=== PATIENT | male | born 1955 | race Caucasian/White ===

== ENCOUNTER 2016-11-12 10:16 | Observation (INO) | payer OTHER ==
[2016-11-12] MEDS ORDERED: Ondansetron INJ* 2 MG/ML VIAL IV ONE ×3 (11:34→16:18)
[2016-11-12] MEDS ORDERED: NS 0.9% 1000 ML* 2,000 ML IV ONE (11:34)
[2016-11-12 11:44] LABS: Hematocrit 45 % (42-52); Hemoglobin 15.1 g/dl (14.0-18.0); Mean Corpuscular HGB Conc 34 g/dl (31-36); Mean Corpuscular Hemoglobin 29 pg (27-31); Mean Corpuscular Volume 86 fL (80-94); Mean Platelet Volume 9 um3 (7.4-10.4); Red Blood Count 5.25 10^6/ul (4.0-5.4); Red Cell Distribution Width 14 % (10.5-15); White Blood Count 16.1 10^3/ul (3.5-10.8)
[2016-11-12 11:58] LABS: Albumin 4.2 g/dL (3.2-5.2); BUN/Creatinine Ratio 24.4 (8-20); C Reactive Protein 1.57 mg/L (< 5.00); Calcium 9.3 mg/dL (8.6-10.3); EGFR African American 122.4 (>60); EGFR Non-African American 95.2 (>60); Globulin 2.5 g/dL (2-4); Magnesium 1.9 mg/dL (1.9-2.7); Potassium 3.9 mmol/L (3.5-5.0); Total Bilirubin 0.5 mg/dL (0.2-1.0); Total Protein 6.7 g/dL (6.4-8.9)
[2016-11-12 12:11] LABS: TSH (Thyroid Stimulating Horm) 1.65 mcIU/mL (0.34-5.60)
[2016-11-12] MEDS ORDERED: Iohexol 300* (CONTRAST) 10 ML SDV IV ONE (12:33)
[2016-11-12] MEDS ORDERED: Morphine INJ* 4 MG/ML 1 ML SYRINGE IV ONE (13:15)
--- NOTE | 2016-11-12 14:20 | RAD ---
INDICATION: Abdominal pain, vomiting. Chills. COMPARISON: January 24, 2005 CT. TECHNIQUE: Multidetector CT images were obtained from the lung bases to the ischial tuberosities with 100 mL Omnipaque 300 IV and oral contrast. Multiplanar reformation. REPORT: Unremarkable visualized inferior thorax. Unremarkable liver. Partially decompressed gallbladder without gross CT abnormality. Unremarkable pancreas and spleen. Negative for CT abdomen malleolus the upper GI. Upper normal size ileal bowel loops. Enteric contrast extends to the ileum without evidence for small bowel obstruction. Retrocecal appendix is mildly prominent measuring 8 mm in diameter. Mild periappendiceal edema. No appendicolith visualized. Negative for periappendiceal abscess. Unremarkable largely decompressed colon. Negative for ascites, free air, hernias. Normal adrenal glands. Unremarkable kidneys with symmetric nephrograms and pyelograms. Unremarkable ureters and urinary bladder. Symmetric seminal vesicles. Negative for thoracic lymphadenopathy. Atherosclerotic plaque of normal diameter abdominal aorta and iliac arteries. Physiologic distention of the IVC. Lumbar sacral spine degenerative spondylosis and facet joint osteoarthritis. Mild bilateral hip joint osteoarthritis. Negative for suspicious focal osseous lesions. IMPRESSION: Mildly prominent retrocecal appendix with mild periappendiceal edema. While grossly unchanged in diameter the appendix appears elongated compared with the prior exam and the periappendiceal edema appears new. Correlate with clinical data for potential early acute appendicitis. No visualized appendicolith. Negative for perienteric abscess.
[2016-11-12] MEDS ORDERED: Ondansetron INJ* 2 MG/ML VIAL IV PRN ×2 (15:11→19:11)
[2016-11-12] MEDS ORDERED: HYDROmorphone* 1 MG/ML 1 ML SYR IV PRN ×2 (15:11→19:11)
[2016-11-12] MEDS ORDERED: Piperac/Tazob 3.375 gm in NS* 3.375 GM/100 ML BAG IVPB ONE (15:15)
--- NOTE | 2016-11-12 15:56 | HP ---
DATE OF ADMISSION: 11/12/2016. REASON FOR ADMISSION: Lower abdominal pain and appendicitis. HISTORY OF PRESENT ILLNESS: Mr. Ralph is a 61-year-old gentleman who presented to the emergency room earlier today with complaints of a one day history of worsening lower abdominal pain. The pat francesnt notes that he had dinner at [employer] last night after which he experienced some intense lower abd ominal pain with associated nausea and vomiting. He had multiple episodes of vomiting and the patie nt eventually subsided last night. Earlier this morning, he woke up again with similar pain localiz ed across his lower abdomen. He reports associated nausea this morning, but he lost his appetite an d was not able to eat anything since 7 o'clock. He reports also associated soft stools, but denied blood in the rectum. He has never experienced any similar complaints in the past and for this reason he presented to the emergency room for further evaluation. He had laboratory work-up that revealed leukocytosis with a white count of 16,000. He also had a CT scan of the abdomen and pelvis that re vealed findings consistent with possible appendicitis. Given his ongoing symptoms and the findings of the CT scan, we were asked to see the patient for further evaluation and to discuss possible appe ndectomy. PAST MEDICAL HISTORY: Essentially unremarkable. He denies any history of heart, liver, lung or kid janie disease. PAST SURGICAL HISTORY: Significant for right inguinal hernia repair, as well as right triceps muscl e repair back approximately 40 years ago. CURRENT MEDICATIONS: He takes Tylenol or Aleve as needed for arthritis aches and pains at home. ALLERGIES: He has no known drug allergies. FAMILY HISTORY: Noncontributory. SOCIAL HISTORY: The patient smokes about a quarter to half-a-pack per day for the past 40+ years. He drinks alcohol occasionally and caffeine intake is minimal. REVIEW OF SYSTEMS: She HPI, otherwise negative. He reports some fever and chills last night, but d enies actually taking a temperature at home. No headache, dizziness, shortness of breath or chest p ain. No dysuria, hematuria, or urinary frequency. He admits to lower abdominal pain with associate d nausea and vomiting, as well as soft stools, but denies any constipation or bleeding per rectum. PHYSICAL EXAMINATION GENERAL: He is a pleasant, healthy-appearing, upper middle-aged gentleman in no acute distress or d iscomfort at the time of admission. VITAL SIGNS: Revealed temperature of 97.8, pulse of 56, respiration of 16, O2 sat of 97 percent on room air, and blood pressure of 142/91. HEENT: Sclerae anicteric. PERRL. EOM's intact. Oropharynx is pink and moist with no exudate. NECK: Supple. Trachea is midline. No cervical adenopathy, thyromegaly or JVD. LUNGS: Clear to auscultation bilaterally. HEART: Regular rate and rhythm. Normal S1 and S2 without rubs, murmurs, or gallops. BACK: Normal curvature. No CVA tenderness. ABDOMEN: Soft and nondistended. Moderate suprapubic and right lower quadrant tenderness noted on p alpation. There is mild guarding and a little bit of rebound; however, there is no hernias or judy s noted. There is a focal tenderness noted at McBurney's point. Agarwal sign was negative. EXTREMITIES: Without cyanosis, clubbing, or edema. RECTAL: Deferred at this time. NEUROLOGIC: Grossly intact. LABORATORY WORK-UP: CBC done with white count of 16,100, hemoglobin of 15, hematocrit of 45, and p latelets of 286. Chemistry with sodium of 133, potassium of 3.9, chloride 104, CO2 21, BUN 20, crea tinine 0.8. His LFT's, lactic acid, amylase and lipase were essentially within normal limits. IMPRESSION: Gsfts-lxz-lliw-old gentleman with worsening lower abdominal pain for the last [address] scan finding consistent with early appendicitis. PLAN: I went on and discussed with the patient proceeding with a laparoscopic appendectomy given hi s ongoing symptoms. The rationale, indications, risks and benefits of surgery were discussed with h im today. Risks include but not limited to infection, bleeding, or injury to adjacent structures. He appears to understand and wishes to proceed with surgery. I also discussed with him antibiotic m anagement and observation for over night hoping his symptoms will improve; however, there is no guar antee it might not get worse. He understood the risks involved and wishes to proceed with surgery t onight. He has been NPO since 7 o'clock this morning. I will discuss the case with Dr. Arroyo and will likely take him to the operating room later this evening in anticipation for a laparoscopic ap pendectomy. GEORGE SALCEDO [id number]/[facility] #: [id number]
[2016-11-12] MEDS ORDERED: Ondansetron INJ* 2 MG/ML VIAL ONE ×2 (16:19→19:39)
[2016-11-12] MEDS ORDERED: Bupivacaine 0.5% W/EPI SDV* 30 ML VIAL ONE (18:00)
--- NOTE | 2016-11-12 18:14 | ED ---
Blaine Gross Billy, scribed for Brett Walter MD on 11/12/16 at 1152 . Abdominal Pain/Male - HPI Summary HPI Summary: Patient is a 61 year-old male coming to [facility] for evaluation of diffuse abdominal pain and concerns for food poisoning. Pain severity 5/10. His abdominal pain improves with emesis. He also reports N/V/D. Denies blood in the stool. Patient states that his symptoms began 2200 yesterday shortly after he ate fast food. He had 2x BM this morning, soft and loose. - History of Current Complaint Chief Complaint: EDAbdPain Stated Complaint: VOMITING Time Seen by Provider: 11/12/16 11:29 Hx Obtained From: Patient Onset/Duration: Gradual Onset, Lasting Hours, Still Present Timing: Constant Severity Initially: Moderate Severity Currently: Moderate Pain Intensity: 5 Pain Scale Used: 0-10 Numeric Location: Diffuse Radiates: No Aggravating Factor(s): Nothing Alleviating Factor(s): Vomiting Associated Signs And Symptoms: Positive: Nausea, Vomiting, Diarrhea. Negative: Blood in Stool - Allergies/Home Medications Allergies/Adverse Reactions: Allergies Allergy/AdvReac Type Severity Reaction Status Date / Time No Known Allergies Allergy Verified 09/01/15 14:35 Home Medications: Home Medications NK [No Home Medications Reported] 11/12/16 [History Confirmed 11/12/16] PMH/Surg Hx/FS Hx/Imm Hx Endocrine/Hematology History: Denies: Hx Diabetes, Hx Thyroid Disease Cardiovascular History: Reports: Other Cardiovascular Problems/Disorders Denies: Hx Hypertension Respiratory History: Denies: Hx Asthma, Hx Chronic Obstructive Pulmonary Disease (COPD) GI History: Denies: Hx Ulcer - Surgical History Surgery Procedure, Year, and Place: RIGHT 5TH FINGER, [facility] Infectious Disease History: No Infectious Disease History: Denies: Hx Hepatitis, Hx Human Immunodeficiency Virus (HIV), Traveled Outside the [place] in Last 30 Days - Family History Known Family History: Positive: Cardiac Disease Family History: No family members with colon disease. - Social History Alcohol Use: Rare Substance Use Type: Reports: None Smoking Status (MU): Heavy Every Day Tobacco Smoker Amount Used/How Often: 3/4-1 PPD Review of Systems Negative: Fever, Chills Positive: Abdominal Pain, Vomiting, Diarrhea, Nausea All Other Systems Reviewed And Are Negative: Yes Physical Exam Triage Information Reviewed: Yes Vital Signs On Initial Exam: Initial Vitals Temp Pulse Resp BP Pulse Ox 97.8 F 75 20 142/94 100 11/12/16 10:18 11/12/16 10:18 11/12/16 10:18 11/12/16 10:18 11/12/16 10:18 Vital Signs Reviewed: Yes Appearance: Positive: Well-Appearing, No Pain Distress Skin: Positive: Warm, Skin Color Reflects Adequate Perfusion, Dry Head/Face: Positive: Normal Head/Face Inspection Eyes: Positive: EOMI, CHRIS ENT: Positive: Normal ENT inspection Neck: Positive: Supple, Nontender Respiratory/Lung Sounds: Positive: Clear to Auscultation, Breath Sounds Present Cardiovascular: Positive: RRR Abdomen Description: Positive: Soft, Other: - Diffusely tender. Bowel Sounds: Positive: Other - High-pitched bowel sounds. Musculoskeletal: Positive: Normal, Strength/ROM Intact Neurological: Positive: Normal, Sensory/Motor Intact, Alert, Oriented to Person Place, Time Psychiatric: Positive: Affect/Mood Appropriate - Marquis Coma Scale Coma Scale Total: 15 Diagnostics - Vital Signs Vital Signs Temp Pulse Resp BP Pulse Ox 11/12/16 10:18 97.8 F 75 20 142/94 100 - Laboratory Lab Results: Lab Results 11/12/16 11/12/16 11/12/16 Range/Units 10:00 10:00 10:00 WBC 16.1 H (3.5-10.8) 10^3/ul RBC 5.25 (4.0-5.4) 10^6/ul Hgb 15.1 (14.0-18.0) g/dl Hct 45 (42-52) % MCV 86 (80-94) fL MCH 29 (27-31) pg MCHC 34 (31-36) g/dl RDW 14 (10.5-15) % Plt Count 286 (150-450) 10^3/ul MPV 9 (7.4-10.4) um3 Neut % (Auto) 78.6 (38-83) % Lymph % (Auto) 14.5 L (25-47) % Summers % (Auto) 5.7 (1-9) % Eos % (Auto) 0.8 (0-6) % Baso % (Auto) 0.4 (0-2) % Absolute Neuts (auto) 12.7 H (1.5-7.7) 10^3/ul Absolute Lymphs (auto) 2.3 (1.0-4.8) 10^3/ul Absolute Monos (auto) 0.9 H (0-0.8) 10^3/ul Absolute Eos (auto) 0.1 (0-0.6) 10^3/ul Absolute Basos (auto) 0.1 (0-0.2) 10^3/ul Absolute Nucleated RBC 0 10^3/ul Nucleated RBC % 0 INR (Anticoag Therapy) 0.96 (0.89-1.11) APTT 29.1 (26.0-36.3) seconds Sodium 133 (133-145) mmol/L Potassium 3.9 (3.5-5.0) mmol/L Chloride 104 (101-111) mmol/L Carbon Dioxide 21 L (22-32) mmol/L Anion Gap 8 (2-11) mmol/L BUN 20 (6-24) mg/dL Creatinine 0.82 (0.67-1.17) mg/dL Est GFR ( Amer) 122.4 (>60) Est GFR (Non-Af Amer) 95.2 (>60) BUN/Creatinine Ratio 24.4 H (8-20) Glucose 122 H (70-100) mg/dL Lactic Acid (0.5-2.0) mmol/L Calcium 9.3 (8.6-10.3) mg/dL Magnesium 1.9 (1.9-2.7) mg/dL Total Bilirubin 0.50 (0.2-1.0) mg/dL AST 20 (13-39) U/L ALT 23 (7-52) U/L Alkaline Phosphatase 79 (34-104) U/L Total Creatine Kinase 133 (10-223) U/L CK-MB (CK-2) 5.4 (0.6-6.3) ng/mL Troponin I 0.00 (<0.04) ng/mL C-Reactive Protein 1.57 (< 5.00) mg/L B-Natriuretic Peptide ( - 100) pg/mL Total Protein 6.7 (6.4-8.9) g/dL Albumin 4.2 (3.2-5.2) g/dL Globulin 2.5 (2-4) g/dL Albumin/Globulin Ratio 1.7 (1-3) Lipase 18 (11.0-82.0) U/L TSH 1.65 (0.34-5.60) mcIU/mL 11/12/16 11/12/16 Range/Units 10:00 10:00 WBC (3.5-10.8) 10^3/ul RBC (4.0-5.4) 10^6/ul Hgb (14.0-18.0) g/dl Hct (42-52) % MCV (80-94) fL MCH (27-31) pg MCHC (31-36) g/dl RDW (10.5-15) % Plt Count (150-450) 10^3/ul MPV (7.4-10.4) um3 Neut % (Auto) (38-83) % Lymph % (Auto) (25-47) % Summers % (Auto) (1-9) % Eos % (Auto) (0-6) % Baso % (Auto) (0-2) % Absolute Neuts (auto) (1.5-7.7) 10^3/ul Absolute Lymphs (auto) (1.0-4.8) 10^3/ul Absolute Monos (auto) (0-0.8) 10^3/ul Absolute Eos (auto) (0-0.6) 10^3/ul Absolute Basos (auto) (0-0.2) 10^3/ul Absolute Nucleated RBC 10^3/ul Nucleated RBC % INR (Anticoag Therapy) (0.89-1.11) APTT (26.0-36.3) seconds Sodium (133-145) mmol/L Potassium (3.5-5.0) mmol/L Chloride (101-111) mmol/L Carbon Dioxide (22-32) mmol/L Anion Gap (2-11) mmol/L BUN (6-24) mg/dL Creatinine (0.67-1.17) mg/dL Est GFR ( Amer) (>60) Est GFR (Non-Af Amer) (>60) BUN/Creatinine Ratio (8-20) Glucose (70-100) mg/dL Lactic Acid 0.7 (0.5-2.0) mmol/L Calcium (8.6-10.3) mg/dL Magnesium (1.9-2.7) mg/dL Total Bilirubin (0.2-1.0) mg/dL AST (13-39) U/L ALT (7-52) U/L Alkaline Phosphatase (34-104) U/L Total Creatine Kinase (10-223) U/L CK-MB (CK-2) (0.6-6.3) ng/mL Troponin I (<0.04) ng/mL C-Reactive Protein (< 5.00) mg/L B-Natriuretic Peptide 49 ( - 100) pg/mL Total Protein (6.4-8.9) g/dL Albumin (3.2-5.2) g/dL Globulin (2-4) g/dL Albumin/Globulin Ratio (1-3) Lipase (11.0-82.0) U/L TSH (0.34-5.60) mcIU/mL Result Diagrams: 11/12/16 10:00 11/12/16 10:00 Lab Statement: Any lab studies that have been ordered have been reviewed, and results considered in the medical decision making process. - CT abd/pel w CT Interpretation Completed By: Radiologist - Mildly prominent retrocecal appendix with mild periappendiceal edema. While grossly unchanged in diameter the appendix appears elongated compared with the prior exam and the periappendiceal edema appears new. Correlate with clinical data for potential early acute appendicitis. No visualized appendicolith. Negative for perienteric abscess. Abdominal Pain Fem Course/Dx - Course Course Of Treatment: NO CRITICAL CARE TIME. Assessment/Plan: DISCUSSED WITH SURGERY WHO SAW PATIENT IN THE ED. ADMIT SURGERY STABLE. - Diagnoses Provider Diagnoses: Abdominal pain - Provider Notifications Discussed Care Of Patient With: Dr. Arroyo (surgery) @ 1440: will have PA see patient in the ED. GEORGE Florian (surgery) @ 1509: admit to surgery. Discharge - Discharge Plan Condition: Stable Disposition: ADMITTED TO [facility] documentation as recorded by the Blaine garcia Billy accurately reflects the service I personally performed and the decisions made by me, Brett Walter MD.
[2016-11-12] MEDS ORDERED: fentaNYL* 50 MCG/ML 2 ML VIAL (100 MCG VIAL) ONE (18:55)
[2016-11-12] MEDS ORDERED: HYDROmorphone* 1 MG/ML 1 ML SYR ONE (18:55)
[2016-11-12] MEDS ORDERED: Midazolam* 1 MG/ML 2 ML VIAL (2 MG) ONE (18:55)
[2016-11-12] MEDS ORDERED: PROCHLORPERAZINE INJ 5 MG/ML 2 ML VIAL IV PRN (19:11)
[2016-11-12] MEDS ORDERED: DiMENhydriNATE IV* 50 MG/ML VIAL IV PUSH PRN (19:11)
[2016-11-12] MEDS ORDERED: fentaNYL* 50 MCG/ML 2 ML VIAL (100 MCG VIAL) IV PRN (19:11)
[2016-11-12] MEDS ORDERED: Buffered Lidocaine 1% SYRIN* 3 ML/SYR SYRINGE INTRADERM ONE (19:13)
[2016-11-12] MEDS ORDERED: Dexamethasone IV* 4 MG/ML 1 ML (4 MG) IV SLOW PU ONE (19:13)
[2016-11-12] MEDS ORDERED: Famotidine IV* 10 MG/ML 2 ML (20 mg) IV ONE (19:13)
[2016-11-12] MEDS ORDERED: PROCHLORPERAZINE INJ 5 MG/ML 2 ML VIAL ONE (19:19)
[2016-11-12] MEDS ORDERED: Scopolamine 1.5 mg* PATCH ONE (19:19)
[2016-11-12] MEDS ORDERED: Ketorolac INJ* 30 MG/ML 1 ML VIAL ONE (19:39)
[2016-11-12] MEDS ORDERED: Propofol* 10 MG/ML 20 ML BTL IV PUSH ONE (19:39)
[2016-11-12] MEDS ORDERED: Lidocaine 2% PF* 5 ML VIAL ONE (19:39)
[2016-11-12] MEDS ORDERED: Rocuronium* 10 MG/ML VIAL ONE (20:15)
[2016-11-12] MEDS ORDERED: Ketorolac INJ* 30 MG/ML 1 ML VIAL IV PUSH PRN (20:45)
[2016-11-12] MEDS ORDERED: oxyCODONE/Acetamin 5/325 MG* TAB PO PRN ×2 (20:45)
[2016-11-12] MEDS ORDERED: diPHENhydraMINE PO* 25 MG PO PRN (20:47)
--- NOTE | 2016-11-12 20:52 | SURGPN ---
Brief Operative Note - Surgery Procedures: PREOP/POSTOP DX: ACUTE APPENDICITIS PROC: LAP APPENDECTOMY SURG: MECENAS ASSIST: NONE ANES: RADHA IVF: 1.1 L LR SPEC: APPENDIX DRAIN/COMPL: NONE COND: STABLE TO RR
[2016-11-13 04:05] VITALS: BP 94/49
--- NOTE | 2016-11-13 09:44 | PN ---
Progress Note - Progress Note SOAP: DISCHARGE NOTE Subjective:feels well,ate solids,no nausea,minimal pain,wants to go home [] Objective:alert,lungs:clear bilat;heart:RRR;abd:+bs, soft,incisions C/D/I;ext: nontender [] Assessment:POD#1 s/p Lap Appy,stable [] Plan:discharge home,instructions reviewed,RX sent,office postop visit scheduled []
--- NOTE | 2016-11-13 18:18 | OP ---
DATE OF OPERATION: 11/12/16 - ROOM #339 DATE OF : 53 SURGEON: Beny Arroyo MD APPLIQUER: None. ANESTHESIOLOGIST: Dakotah Morrison MD ANESTHESIA: General endotracheal. PRE-OP DIAGNOSIS: Acute appendicitis. POST-OP DIAGNOSIS: Acute appendicitis. OPERATIVE PROCEDURE: Laparoscopic appendectomy. ESTIMATED BLOOD LOSS: Minimal. IV FLUIDS: 1100 mL crystalloid. SPECIMENS: Appendix. DRAINS: None. COMPLICATIONS: None. COUNTS: Instrument, needle, and sponge counts were correct. DESCRIPTION OF PROCEDURE: The patient was brought to the operating room and placed on table supine. Sequential compression devices were placed on both lower extremities. General anesthesia was administered. He received appropriate antibiotics, and was prepped and draped in the usual sterile fashion and a time-out was performed. Local anesthetic was infiltrated into the skin and soft tissue prior to making each incision. Entry to the abdomen was through a transumbilical vertical incision using an open technique. After accessing the peritoneal cavity, a 12 mm trocar was placed. Carbon dioxide was insufflated to a pressure 15 mmHg. Under direct visualization, 5 mm trocars were placed in the suprapubic midline and the left lower quadrant. The appendix was in the retrocecal position. The adhesions of the appendix to the retroperitoneum were divided using combination of sharp dissection and cautery. Once the appendix were freed, it was able to be elevated. The appendix appeared to be acutely inflamed with early suppurative changes, no gangrene. The appendix was divided from the cecum at its base using the Endo ANAM stapler with a 45 mm ayala cartridge and this was used to divide both the appendix and the appendix mesentery. The appendix was then placed into an endoscopic retrieval bag and retrieved through the umbilical site. The site of dissection and staple lines were inspected, they were noted to be intact, hemostasis was excellent. Ports removed under direct visualization. Carbon dioxide was released. The umbilical incision was closed with 0 Polysorb in a figure-of- eight fashion to approximate the fascia. Skin incisions were closed with 4-0 Monocryl in a subcuticular fashion. DermaFlex was applied to the incisions. The patient tolerated the procedure well, he was extubated and transferred to the recovery room in stable condition. CC: Delvis Lal MD* [id number]/[facility] #: [id number] [facility] HOSPITALDave
--- NOTE | 2016-11-14 05:52 | DS ---
DISCHARGE SUMMARY: DATE OF ADMISSION: 11/12/16 DATE OF DISCHARGE: 11/13/16 ATTENDING SURGEON: Dr. Beny Arroyo (dictated by Analilia Smith NP). HOSPITAL COURSE: Please refer to admission history and physical for admission details. The patient was taken to the operating room on 11/12/16, and underwent laparoscopic appendectomy by Dr. Arroyo. He had an uneventful postoperative course, he required minimal pain medication and was able to meet the criteria for discharge by tolerating solid foods, voiding in large amounts and ambulating in the casiano. PHYSICAL EXAMINATION: General: Well-appearing, in no acute distress. Vital signs are stable. He is afebrile. His O2 saturation is 95% on room air. Lungs : Breath sounds bilaterally clear and equal. Heart: Regular rate and rhythm. No murmurs or rubs appreciated. Abdomen: Active bowel sounds, soft, laparoscopic incisions are intact, clean and dry. Bowel sounds are active. Extremities are warm and nontender. IMPRESSION: Postop day 1, status post laparoscopic appendectomy, doing well. PLAN: Discharge home today. Instructions were reviewed with the patient. Prescription for opioid was transmitted to his pharmacy; office visit for postoperative assessment was scheduled for 11/20/16. He is not on any current home medications. He knows that he may use [id number] Tylenol or Advil for milder pain. All of his questions were answered. LYNDSAY SMITH NP CC: Dr. Arroyo, [facility]; [facility]* [id number]/[facility] #: [id number] MTDD
== END 2016-11-13 10:45 | disposition home or self-care (01) ==
LOC: ED 10:16 → SSU 15:11
PROVIDERS: ADMIT Surgery; ATTEND Surgery
PROC: 0DTJ4ZZ Resection of Appendix, Percutaneous Endoscopic Approach (ICD-10-PCS; principal; 2016-11-12 16:30)
DX: K35.80 Unspecified acute appendicitis (principal); F17.210 Nicotine dependence, cigarettes, uncomplicated; R11.2 Nausea with vomiting, unspecified; R19.7 Diarrhea, unspecified
CPT/HCPCS: 36415; 74177; 80053; 82550; 82553; 83605; 83690; 83735; 83880; 84443; 84484; 85025; 85610; 85730; 86140; 88304; 96361; 96374; 96375; 99284; A9270-GY; C1776; G0378; J0780; J1170; J1885; J2250; J2270; J2405; J2543; J2704; J3010; Q9967

== ENCOUNTER 2022-09-21 02:08 | Inpatient (IN) ==
[2022-09-21 02:57] LABS: ABS Basophils 0.1 10^3/ul (0-0.2); ABS Eosinophils 0.3 10^3/ul (0-0.6); ABS Lymphocytes 2.7 10^3/ul (1.0-4.8); ABS Monocytes 0.9 10^3/ul (0-0.8); ABS Neutrophils 9.4 10^3/ul (1.5-7.7); Eosinophil % 2.4 %; Hematocrit 41 % (42-52); Hemoglobin 13.3 g/dL (14.0-18.0); Lymphocyte % 20.1 %; Mean Corpuscular HGB Conc 32 g/dL (31-36); Mean Corpuscular Hemoglobin 29 pg (27-31); Mean Corpuscular Volume 91 fL (80-94); Mean Platelet Volume 9.1 fL (7.4-10.4); Platelet Count 311 10^3/uL (150-450); Red Blood Count 4.53 10^6 /uL (4.18-5.48); Red Cell Distribution Width 14 % (10-15); White Blood Count 13.3 10^3/uL (3.5-10.8)
[2022-09-21] MEDS ORDERED: Heparin DRIP 25,000 UNITS BAG 25,000 UNITS/500 ML BAG IV SCH (03:00)
[2022-09-21 03:01] LABS: INR 1.04 (0.88-1.18)
[2022-09-21 03:18] LABS: Albumin 3.5 g/dL (3.2-5.2); Albumin/Globulin Ratio 1.8 (1-3); Calcium 8.2 mg/dL (8.6-10.3); Creatinine, Serum 0.96 mg/dL (0.67-1.17); Globulin 1.9 g/dL (2-4); Potassium 3.9 mmol/L (3.5-5.0); Total Bilirubin 0.3 mg/dL (0.2-1.0); Total Protein 5.4 g/dL (6.4-8.9); eGFR CKD-EPI 86.1 (>60)
[2022-09-21 03:32] LABS: Activated Partial Thrombo Time 26.3 seconds (26.0-38.0)
[2022-09-21 03:59] LABS: High Sensitivity Troponin 1 Hr 31 pg/mL (<20)
[2022-09-21] MEDS ORDERED: nitroGLYCERIN DRIP 25,000 MCG/250 ML BTL IV SCH (04:00)
[2022-09-21] MEDS ORDERED: Heparin 5000 UNITS/ML 1 mL VIAL IV SCH (04:00)
[2022-09-21 04:06] LABS: Creatinine, Serum 0.89 mg/dL (0.67-1.17); eGFR CKD-EPI 93.3 (>60)
[2022-09-21 04:47] LABS: Magnesium 1.9 mg/dL (1.9-2.7); Phosphorus 2.9 mg/dL (2.5-5.0)
[2022-09-21 05:31] LABS: High Sensitivity Troponin 3 Hr 127 pg/mL (<20)
[2022-09-21 05:42] LABS: Erythrocyte Sed Rate 1 mm/Hr (0-19)
[2022-09-21] MEDS ORDERED: Magnesium Sulfate IV 1GM/100ML 1 GM/100 ML BAG IV ONE (06:19)
[2022-09-21 07:44] LABS: C Reactive Protein 1.58 mg/L (<8.01)
[2022-09-21] MEDS ORDERED: Amoxicillin/Clavul 875/125 TAB (Augmentin 875 tab) PO SCH (09:00)
[2022-09-21] MEDS ORDERED: Albuterol 2.5mg/3 ml (0.083%) NEB.SOLN INH PRN (10:17)
[2022-09-21 17:20] VITALS: BP 141/84
[2022-09-21] MEDS ORDERED: Mometasone/Formoter 200/5 MDI INH SCH (19:00)
== END 2022-09-21 17:15 | disposition left against medical advice (07) | DRG 281 ==
LOC: ED 02:08 → EDHOLD 04:27 → ICU 09:57
PROVIDERS: ADMIT Internal Medicine Critical Care Medicine; ATTEND Internal Medicine Critical Care Medicine